=== PATIENT | female | born 1950 | race Caucasian/White ===

== ENCOUNTER 2023-04-22 03:47 | Inpatient (IN) | payer MEDICARE ==
[2023-04-22 04:14] LABS: ALT (SGPT) 22 U/L (8-55); AST (SGOT) 33 U/L (5-34); Albumin 4.6 g/dL (3.4-4.8); Alkaline Phosphatase 50 U/L (40-110); Anion Gap 16 mmol/L (10-20); BUN (Urea Nitrogen) 22 mg/dL (9.8-20.1); Calc. Creatinine Clearance 0 mL/min (70-130); Calcium 11.4 mg/dL (7.8-10.44); Carbon Dioxide 26 mmol/L (23-31); Chloride 101 mmol/L (98-107); Estimated GFR 66; Globulin 2.5 g/dL (2.4-3.5); Glucose 175 mg/dL (83-110); Lipase 24 U/L (8-78); Potassium 4.2 mmol/L (3.5-5.1); Protein, Total 7.1 g/dL (5.8-8.1); Sodium 139 mmol/L (136-145)
[2023-04-22] MEDS ORDERED: Ondansetron PF 4 MG/2 ML Vial ONE (04:15)
[2023-04-22] MEDS ORDERED: Aspirin 325 MG TAB ONE (04:16)
[2023-04-22] MEDS ORDERED: Mag-Al Plus 1200 MG/1200 MG/120 MG/30 ML UDCUP ONE (04:16)
[2023-04-22 04:20] LABS: Hematocrit 44.5 % (34.9-44.5); MDiff Complete? YES; Mean Corpuscular HGB CONC 33.7 g/dL (32.0-36.0); Platelet Count 264 10x3/uL (150-450); RBC Distribution Width 12.9 % (11.5-14.5); White Blood Cell (WBC) Count 11.8 10x3/uL (3.5-10.5)
[2023-04-22 04:34] LABS: Band 7 % (5-11); Eosinophils 1 % (0-10); Lymphocytes 28 % (21-51); Monocytes 5 % (0-10); Neutrophil 52 % (42-75); Reactive Lymphocytes 5 % (0-10)
[2023-04-22 04:35] LABS: Platelet Adequacy Comment Platelets Normal; RBC Morph Comment Within Normal Limits
[2023-04-22 04:55] LABS: SARS-CoV-2 NAA Rapid Test Not Detected (NotDetected)
[2023-04-22 10:05] LABS: Troponin I 2.275 ng/mL (< 0.028)
[2023-04-22] MEDS ORDERED: Iopamidol 370 76% 100 ML VIAL ONE (10:29)
[2023-04-22] MEDS ORDERED: Ondansetron PF 4 MG/2 ML Vial IVP PRN (10:55)
[2023-04-22] MEDS ORDERED: Acetaminophen 325 MG TAB PO PRN (10:55)
[2023-04-22] MEDS ORDERED: Ondansetron ODT 4 MG TAB PO PRN (10:55)
[2023-04-22] MEDS ORDERED: Acetaminophen 650 MG Suppository PR PRN (10:55)
[2023-04-22 12:13] VITALS: BMI 21.1
[2023-04-22] MEDS ORDERED: Metoprolol Tartrate 25 MG TAB PO SCH (12:15)
[2023-04-22] MEDS: HYDROcodone/Acetaminophen 5/325 mg Tablet PO PRN ×2 (12:55→18:39)
[2023-04-22] MEDS ORDERED: Electrolyte Replacement Protocol 1 EACH FS SCH (18:00)
[2023-04-22] MEDS ORDERED: Mag-Al 1200 mg/1200 mg/30 ML UDCUP PO PRN (18:14)
[2023-04-22 18:28] LABS: Magnesium 1.9 mg/dL (1.6-2.6)
[2023-04-22] MEDS: Sertraline 100 MG TAB PO SCH (20:47)
[2023-04-22] MEDS: Metoprolol Tartrate 25 MG TAB PO SCH (20:47)
[2023-04-22] MEDS: Atorvastatin Calcium 20 MG TAB PO SCH (20:47)
[2023-04-22] MEDS ORDERED: Sertraline 100 MG TAB PO SCH (21:00)
[2023-04-22] MEDS ORDERED: Magnesium 2 GM/50 ML(in water) 2 GM in Premix Bag 1 BAG IVPB SCH (21:00)
[2023-04-23] MEDS: Levothyroxine Sodium 75 MCG TAB PO SCH (05:27)
[2023-04-23 05:59] LABS: #Basophils 0.1 10x3/uL (0.0-0.2); #Eosinphils 0.1 10x3/uL (0.0-0.5); #Monocytes 1.2 10x3/uL (0.0-1.1); #Neutrophils 7.1 10x3/uL (1.5-8.4); %Basophils 0.5 % (0.0-2.0); %Eosinophils 0.5 % (0.0-6.0); %Lymphocytes 20.4 % (18.0-47.0); %Neutrophils 67.2 % (40.0-75.0); Hematocrit 44.4 % (34.9-44.5); Hemoglobin 14.9 g/dL (12.0-15.5); Mean Corpuscular HGB CONC 33.6 g/dL (32.0-36.0); Mean Corpuscular Hemoglobin 30.3 pg (27.0-33.0); Mean Corpuscular Volume 90.2 fl (81.6-98.3); Mean Platelet Volume 13.2 fl (7.4-10.4); Platelet Count 225 10x3/uL (150-450); RBC Distribution Width 13.3 % (11.5-14.5); Red Blood Cell (RBC) Count 4.92 10x6/uL (3.90-5.03); White Blood Cell (WBC) Count 10.4 10x3/uL (3.5-10.5)
[2023-04-23 06:14] LABS: ALT (SGPT) 25 U/L (8-55); AST (SGOT) 79 U/L (5-34); Albumin 4.2 g/dL (3.4-4.8); Alkaline Phosphatase 52 U/L (40-110); Anion Gap 13 mmol/L (10-20); BUN (Urea Nitrogen) 15 mg/dL (9.8-20.1); Bilirubin, Total 1.3 mg/dL (0.2-1.2); CK (CPK) 422 U/L (29-168); Calc. Creatinine Clearance 51 mL/min (70-130); Calcium 9.7 mg/dL (7.8-10.44); Carbon Dioxide 29 mmol/L (23-31); Chloride 101 mmol/L (98-107); Estimated GFR 65; Globulin 2.6 g/dL (2.4-3.5); Glucose 118 mg/dL (83-110); Magnesium 2.5 mg/dL (1.6-2.6); Potassium 4.6 mmol/L (3.5-5.1); Protein, Total 6.8 g/dL (5.8-8.1); Sodium 138 mmol/L (136-145)
[2023-04-23 06:25] LABS: Cholesterol 216 mg/dl (< 200 Desired); HDL Cholesterol 72 mg/dL (>60 Neg Risk); LDL Cholesterol, Calculated 126 mg/dL; Triglycerides 90 mg/dL (Less than 150); Troponin I 9.603 ng/mL (< 0.028)
[2023-04-23 06:34] LABS: Thyroid Stimulating Hormone 0.1088 uIU/mL (0.35-4.94)
[2023-04-23] MEDS: Aspirin 81 mg Enteric Coated Tablet PO SCH (08:25)
[2023-04-23] MEDS: Metoprolol Tartrate 25 MG TAB PO SCH ×2 (08:25→21:23)
[2023-04-23] MEDS ORDERED: Communication Order-Pharmacy FS SCH (09:15)
[2023-04-23] MEDS: HYDROcodone/Acetaminophen 5/325 mg Tablet PO PRN (10:21)
[2023-04-23] MEDS: Sertraline 100 MG TAB PO SCH (21:22)
[2023-04-23] MEDS: Atorvastatin Calcium 20 MG TAB PO SCH (21:22)
[2023-04-24 04:54] LABS: #Basophils 0.1 10x3/uL (0.0-0.2); #Eosinphils 0.1 10x3/uL (0.0-0.5); #Monocytes 1.2 10x3/uL (0.0-1.1); #Neutrophils 5.7 10x3/uL (1.5-8.4); %Basophils 0.7 % (0.0-2.0); %Eosinophils 0.6 % (0.0-6.0); %Lymphocytes 32.5 % (18.0-47.0); %Monocytes 11.7 % (0.0-10.0); %Neutrophils 54.3 % (40.0-75.0); Hematocrit 42.1 % (34.9-44.5); Hemoglobin 14.1 g/dL (12.0-15.5); Mean Corpuscular HGB CONC 33.5 g/dL (32.0-36.0); Mean Corpuscular Hemoglobin 30.1 pg (27.0-33.0); Mean Corpuscular Volume 89.8 fl (81.6-98.3); Platelet Count 208 10x3/uL (150-450); RBC Distribution Width 13.1 % (11.5-14.5); Red Blood Cell (RBC) Count 4.69 10x6/uL (3.90-5.03); White Blood Cell (WBC) Count 10.4 10x3/uL (3.5-10.5)
[2023-04-24 05:01] LABS: Anion Gap 13 mmol/L (10-20); BUN (Urea Nitrogen) 13 mg/dL (9.8-20.1); Calc. Creatinine Clearance 56 mL/min (70-130); Carbon Dioxide 28 mmol/L (23-31); Chloride 104 mmol/L (98-107); Potassium 4.6 mmol/L (3.5-5.1); Sodium 140 mmol/L (136-145)
[2023-04-24 05:02] LABS: ALT (SGPT) 19 U/L (8-55); AST (SGOT) 38 U/L (5-34); Albumin 3.8 g/dL (3.4-4.8); Alkaline Phosphatase 48 U/L (40-110); Bilirubin, Total 1.7 mg/dL (0.2-1.2); Calcium 9.1 mg/dL (7.8-10.44); Estimated GFR 72; Globulin 2.6 g/dL (2.4-3.5); Glucose 109 mg/dL (83-110); Protein, Total 6.4 g/dL (5.8-8.1)
[2023-04-24] MEDS: Levothyroxine Sodium 75 MCG TAB PO SCH (05:45)
[2023-04-24] MEDS: Metoprolol Tartrate 25 MG TAB PO SCH ×2 (05:45→21:35)
[2023-04-24] MEDS: Aspirin 81 mg Enteric Coated Tablet PO SCH (05:45)
[2023-04-24] MEDS: Sodium Chloride 0.9% 1,000 ML IV SCH ×2 (05:45→18:31)
[2023-04-24] MEDS ORDERED: Magnesium 2 GM/50 ML(in water) 2 GM in Premix Bag 1 BAG IVPB SCH ×2 (06:00→09:00)
[2023-04-24] MEDS ORDERED: Midazolam HCl 2 mg/2 ml Vial ONE (07:08)
[2023-04-24] MEDS ORDERED: Atropine Sulfate 1 mg/1 ml Vial ONE (07:08)
[2023-04-24] MEDS ORDERED: Heparin 10,000 UNITS/ 10 ML VIAL ONE (07:08)
[2023-04-24] MEDS ORDERED: fentaNYL 50 mcg/mL 1 mL Vial ONE (07:08)
[2023-04-24] MEDS ORDERED: Verapamil 5 MG/2 ML VIAL ONE (07:08)
[2023-04-24] MEDS ORDERED: Adenosine 6 MG/2 ML VIAL ONE (07:08)
[2023-04-24] MEDS ORDERED: Nitroglycerin 50 MG/250 ML BOT 250 ML ONE (07:08)
[2023-04-24] MEDS ORDERED: Lidocaine 1% (PF) 30 ML VIAL ONE (07:12)
[2023-04-24] MEDS ORDERED: Bivalirudin 250 MG VIAL ONE (07:54)
[2023-04-24] MEDS ORDERED: Nitroglycerin 0.4 MG TAB (25 Tab Bottle) SL PRN (08:45)
[2023-04-24] MEDS ORDERED: Sodium Chloride 0.9% 1,000 ML IV SCH (08:45)
[2023-04-24] MEDS: Clopidogrel Bisulfate 75 MG TAB PO SCH (10:11)
[2023-04-24] MEDS ORDERED: Iopamidol 300 61% 100 ML VIAL FS ONE (13:43)
[2023-04-24 14:28] LABS: Bilirubin Neg (Negative); Blood, Urine 250 (Negative); Glucose, Urine (Dipstick) Normal (Negative); Ketone, Urine Negative (Negative); Leukocyte Negative (Negative); Nitrite Negative (Negative); Protein, Urine (Dipstick) 30 mg/dl (Neg-Trace); Urobilinogen Normal mg/dL (Less than 2)
[2023-04-24 14:38] LABS: Clarity Hazy (Clear); RBC/HPF Greater than 50 HPF (0-3)
[2023-04-24 14:39] LABS: Squamous Epithelial 0-3 HPF (0-3); WBC/HPF None Seen HPF (0-3)
[2023-04-24 14:40] LABS: Bacteria/HPF None Seen HPF (None Seen)
[2023-04-24] MEDS: Atorvastatin Calcium 20 MG TAB PO SCH (21:35)
[2023-04-24] MEDS: Sertraline 100 MG TAB PO SCH (21:35)
[2023-04-25 05:07] LABS: #Basophils 0.1 10x3/uL (0.0-0.2); #Eosinphils 0.1 10x3/uL (0.0-0.5); #Neutrophils 5.4 10x3/uL (1.5-8.4); %Basophils 0.9 % (0.0-2.0); %Eosinophils 0.8 % (0.0-6.0); %Lymphocytes 27.9 % (18.0-47.0); %Monocytes 10.7 % (0.0-10.0); %Neutrophils 59.5 % (40.0-75.0); Hematocrit 41.5 % (34.9-44.5); Hemoglobin 13.7 g/dL (12.0-15.5); Mean Corpuscular Hemoglobin 30.1 pg (27.0-33.0); Mean Corpuscular Volume 91.2 fl (81.6-98.3); Mean Platelet Volume 12.9 fl (7.4-10.4); Platelet Count 194 10x3/uL (150-450); RBC Distribution Width 13.1 % (11.5-14.5); Red Blood Cell (RBC) Count 4.55 10x6/uL (3.90-5.03); White Blood Cell (WBC) Count 9.1 10x3/uL (3.5-10.5)
[2023-04-25 05:16] LABS: Anion Gap 12 mmol/L (10-20); BUN (Urea Nitrogen) 13 mg/dL (9.8-20.1); Calc. Creatinine Clearance 56 mL/min (70-130); Calcium 9.2 mg/dL (7.8-10.44); Carbon Dioxide 26 mmol/L (23-31); Chloride 104 mmol/L (98-107); Estimated GFR 72; Glucose 106 mg/dL (83-110); Magnesium 1.9 mg/dL (1.6-2.6); Potassium 4.3 mmol/L (3.5-5.1); Sodium 138 mmol/L (136-145)
[2023-04-25] MEDS: Levothyroxine Sodium 75 MCG TAB PO SCH (06:14)
[2023-04-25 07:14] VITALS: BP 116/60; TEMP 99.2
[2023-04-25] MEDS: Metoprolol Tartrate 25 MG TAB PO SCH (08:31)
[2023-04-25] MEDS: Aspirin 81 mg Enteric Coated Tablet PO SCH (08:31)
[2023-04-25] MEDS: Clopidogrel Bisulfate 75 MG TAB PO SCH (08:31)
[2023-04-25] MEDS ORDERED: Magnesium 2 GM/50 ML(in water) 2 GM in Premix Bag 1 BAG IVPB SCH (09:00)
== END 2023-04-25 11:16 | disposition home or self-care (01) | DRG 282 ==
LOC: CSHERS 03:47 → CSHTELE 09:43
PROVIDERS: ADMIT Internal Medicine; ATTEND Family Medicine
PROC: 4A023N7 Measurement of Cardiac Sampling and Pressure, Left Heart, Percutaneous Approach (ICD-10-PCS; principal; 2023-04-24)
PROC: B2111ZZ Fluoroscopy of Multiple Coronary Arteries using Low Osmolar Contrast (ICD-10-PCS; 2023-04-24)
PROC: B2151ZZ Fluoroscopy of Left Heart using Low Osmolar Contrast (ICD-10-PCS; 2023-04-24)
DX: I21.4 Non-ST elevation (NSTEMI) myocardial infarction (principal); Z20.822 Contact with and (suspected) exposure to COVID-19; K21.9 Gastro-esophageal reflux disease without esophagitis; E03.9 Hypothyroidism, unspecified; M81.0 Age-related osteoporosis without current pathological fracture; E78.5 Hyperlipidemia, unspecified; K58.9 Irritable bowel syndrome, unspecified; E83.52 Hypercalcemia; R31.0 Gross hematuria; I12.9 Hypertensive chronic kidney disease with stage 1 through stage 4 chronic kidney disease, or unspecified chronic kidney disease; I34.0 Nonrheumatic mitral (valve) insufficiency; I49.3 Ventricular premature depolarization; N18.2 Chronic kidney disease, stage 2 (mild); R79.89 Other specified abnormal findings of blood chemistry; Z98.890 Other specified postprocedural states; Z88.1 Allergy status to other antibiotic agents; Z88.0 Allergy status to penicillin; Z87.891 Personal history of nicotine dependence; Z91.012 Allergy to eggs; Z91.018 Allergy to other foods
CPT/HCPCS: 36415; 36416; 71275; 80048; 80053; 80061; 81001; 82306; 82550; 83690; 83735; 84443; 84484; 85025; 93005; 93010; 93306; 93458; 94760; 99152; C1769; C1894; J0153; J0461; J0583; J1644; J1650; J2001; J2250; J2405; J3010; J3475; J7050; Q9967

== ENCOUNTER 2023-09-19 15:10 | Outpatient (CLI) | payer MEDICARE | END 2023-09-19 15:11 | disposition home or self-care (01) | LOC: CSHMAMMO 15:10 | PROVIDERS: ATTEND Internal Medicine | DX: M81.0 Age-related osteoporosis without current pathological fracture (principal); M85.88 Other specified disorders of bone density and structure, other site | CPT/HCPCS: 77080 ==

== ENCOUNTER 2024-08-09 09:59 | Outpatient (CLI) | payer MEDICARE ==
[2024-08-09] MEDS ORDERED: Iopamidol 300 61% 100 ML VIAL FS ONE (11:20)
== END 2024-08-09 10:00 | disposition home or self-care (01) ==
LOC: CSHCT 09:59
PROVIDERS: ATTEND Physician Assistant Medical
DX: R10.32 Left lower quadrant pain (principal); K57.30 Diverticulosis of large intestine without perforation or abscess without bleeding; N20.0 Calculus of kidney
CPT/HCPCS: 74177; 82565; Q9967

== ENCOUNTER 2025-06-20 14:41 | Emergency (ER) | payer MEDICARE ==
[2025-06-20 15:56] LABS: Glucose, Urine (Dipstick) Normal (Negative); Leukocyte 100 (Negative); Protein, Urine (Dipstick) 100 mg/dl (Neg-Trace); Specific Gravity, Urine 1.020 (1.005-1.030)
[2025-06-20 16:26] LABS: RBC/HPF Greater than 50 HPF (0-3)
[2025-06-20 16:27] LABS: Bacteria/HPF 2+ HPF (None Seen); CAUTI Indications for Culture Dysuria,urgency,freq
[2025-06-20 16:28] LABS: Mucous/LPF 3+ LPF (<2+)
[2025-06-20 16:30] LABS: Urine Culture Reflex Yes Yes
[2025-06-20 16:40] LABS: #Basophils 0.08 10x3/uL (0.0-0.2); #Eosinophils 0.13 10x3/uL (0.0-0.5); #Monocytes 0.60 10x3/uL (0.0-1.1); #Neutrophils 4.04 10x3/uL (1.5-8.4); %Basophils 1.2 % (0.0-2.0); %Eosinophils 1.9 % (0.0-6.0); %Lymphocytes 28.7 % (18.0-47.0); %Monocytes 8.8 % (0.0-10.0); %Neutrophils 59.1 % (40.0-75.0); Hematocrit 41.2 % (34.9-44.5); Hemoglobin 14.0 g/dL (12.0-15.5); Mean Corpuscular Hemoglobin 30.5 pg (27.0-33.0); Mean Corpuscular Volume 89.8 fL (81.6-98.3); Platelet Count 206 10x3/uL (150-450); Red Blood Cell (RBC) Count 4.59 10x6/uL (3.90-5.03); White Blood Cell (WBC) Count 6.83 10x3/uL (3.5-10.5)
[2025-06-20 16:59] LABS: ALT (SGPT) 18 U/L (Less than 34); AST (SGOT) 26 U/L (11-34); Albumin 3.8 g/dL (3.1-4.5); Alkaline Phosphatase 69 U/L (40-110); Anion Gap 13 mmol/L (10-20); BUN (Urea Nitrogen) 22 mg/dL (9.8-20.1); Bilirubin, Total 1.2 mg/dL (0.3-1.2); Calc. Creatinine Clearance 0 mL/min (70-130); Calcium 9.1 mg/dL (7.8-10.44); Carbon Dioxide 24 mmol/L (23-31); Chloride 108 mmol/L (98-107); Globulin 2.3 g/dL (2.4-3.5); Glucose 85 mg/dL (83-110); Potassium 4.2 mmol/L (3.5-5.1); Sodium 141 mmol/L (136-145)
== END 2025-06-20 17:49 | disposition home or self-care (01) ==
LOC: CSHERS 14:41
DX: N13.6 Pyonephrosis (principal); I10 Essential (primary) hypertension; I48.91 Unspecified atrial fibrillation
CPT/HCPCS: 36415; 74176; 80053; 81001; 85025; 87086